=== PATIENT | male | born 1960 | race Caucasian/White ===

== ENCOUNTER 2017-01-01 03:07 | Emergency (ER) | payer BC ==
[2017-01-01] MEDS ORDERED: ASPIRIN 81 MG TABLET, CHEWABLE PO ONE (03:18)
[2017-01-01 03:38] LABS: ABSOLUTE BASOPHILS # (AUTO) 0.1 10^3/uL (0.0-0.2); ABSOLUTE EOSINOPHILS # (AUTO) 0.3 10^3/uL (0.0-0.6); ABSOLUTE LYMPHOCYTES (AUTO) 1.4 10^3/uL (0.5-4.7); ABSOLUTE MONOCYTES (AUTO) 0.7 10^3/uL (0.1-1.4); ABSOLUTE NEUT (AUTO) 4.4 10^3/uL (1.7-8.2); BASOPHILS % (AUTO) 0.8 % (0-2); EOSINOPHILS % (AUTO) 3.9 % (0-6); HEMATOCRIT 43.8 % (37.9-51.0); HEMOGLOBIN 14.6 g/dL (13.5-17.0); LYMPHOCYTES % (AUTO) 20.5 % (13-45); MEAN CORPUSCULAR HEMOGLOBIN 30.6 pg (27.0-33.4); MEAN CORPUSCULAR HGB CONC 33.4 g/dL (32.0-36.0); MEAN CORPUSCULAR VOLUME 92 fl (80-97); MONOCYTES % (AUTO) 9.9 % (3-13); RED BLOOD COUNT 4.78 10^6/uL (4.35-5.55); RED CELL DISTRIBUTION WIDTH 13.9 % (11.5-14.0); SEGMENTED NEUTROPHILS % (AUTO) 64.9 % (42-78); WHITE BLOOD COUNT 6.7 10^3/uL (4.0-10.5)
--- NOTE | 2017-01-01 03:45 | ER Document Report ---
ED General - General Chief Complaint: Chest Pain Stated Complaint: CHEST PAIN Time Seen by Provider: 01/01/17 03:21 Notes: Patient is a 56-year-old male who comes emergency department for chief complaint of chest pain and irritation up in his throat, symptoms awoke him from sleep tonight. He comes by ambulance, was given 324 mg of aspirin, 1 dose of sublingual iron, and a nitro glycerin patch. Patient states the pain was in the left chest and radiated towards his left arm. He states this is significantly better now but he still irritation in his throat like he needs to "throw up and get something out". Patient ate steak for dinner tonight. Denies knowledge of esophageal stricture, states something similar happened with food several years ago though. He does not smoke, he denies any cardiac medical history or family medical history of cardiac disease. He denies any daily medications, only past medical history is chronic lower back pain. - Related Data Allergies/Adverse Reactions: fentanyl Allergy (Verified 01/01/17 04:00) narcotics Allergy (Uncoded 01/01/17 04:00) Home Medications: Current Home Medications Ibuprofen/Famotidine [Duexis 800-26.6 mg Tablet] 1 tab PO TID 01/01/17 [History] Past Medical History - General Information source: Patient - Social History Smoking Status: Never Smoker Frequency of alcohol use: None Drug Abuse: None Lives with: Family Family History: Reviewed & Not Pertinent Musculoskeltal Medical History: Reports Hx Arthritis, Reports Hx Musculoskeletal Deformity, Reports Hx Musculoskeletal Trauma Surgical Hx: Negative - Immunizations Immunizations up to date: Yes Hx Diphtheria, Pertussis, Tetanus Vaccination: Yes Review of Systems - Review of Systems Constitutional: No symptoms reported EENT: No symptoms reported Cardiovascular: See HPI Respiratory: No symptoms reported Gastrointestinal: See HPI Genitourinary: No symptoms reported Male Genitourinary: No symptoms reported Musculoskeletal: No symptoms reported Skin: No symptoms reported Hematologic/Lymphatic: No symptoms reported Neurological/Psychological: No symptoms reported Physical Exam - Vital signs Vitals: Temp Pulse Ox 98.2 F 98 01/01/17 03:08 01/01/17 03:08 Interpretation: Normal - General General appearance: Anxious - patient appears uncomfortable on exam, clearing his throat and making coughing sounds - HEENT Head: Normocephalic, Atraumatic Eyes: Normal Conjunctiva: Normal Extraocular movements intact: Yes Eyelashes: Normal Pupils: PERRL Nasal: Normal Mouth/Lips: Normal Mucous membranes: Normal Pharynx: Normal Neck: Normal - Respiratory Respiratory status: No respiratory distress Chest status: Nontender Breath sounds: Normal Chest palpation: Normal - Cardiovascular Rhythm: Regular. No: Tachycardia Heart sounds: Normal auscultation, S1 appreciated, S2 appreciated Murmur: No - Abdominal Inspection: Normal Distension: No distension Bowel sounds: Normal Tenderness: Nontender. No: Tender, Guarding Organomegaly: No organomegaly - Back Back: Normal, Nontender - Extremities General upper extremity: Normal inspection, Nontender, Normal color, Normal ROM , Normal temperature General lower extremity: Normal inspection, Nontender, Normal color, Normal ROM , Normal temperature, Normal weight bearing. No: Elsie's sign - Neurological Neuro grossly intact: Yes Cognition: Normal Orientation: AAOx4 [place] Coma Scale Eye Opening: Spontaneous [place] Coma Scale Verbal: Oriented [place] Coma Scale Motor: Obeys Commands Jamil Coma Scale Total: 15 Speech: Normal Motor strength normal: LUE, RUE, LLE, RLE Sensory: Normal - Psychological Associated symptoms: Normal affect, Normal mood - Skin Skin Temperature: Warm Skin Moisture: Dry Skin Color: Normal Course - Re-evaluation Re-evalutation: EKG showing sinus rhythm, no T-wave inversions or ST segment changes in consecutive leads. Initial troponin negative. CBC and chemistry generally unremarkable. Patient stating he just feels like he needs to vomit and feel better, making cough sounds and clearing his throat. After GI cocktail symptoms completely resolved. Atypical pain and presentation with no concerning reported risk factors other than age. Heart score of 1. Low risk. Unremarkable chest x-ray. Troponin cycled and is negative. Patient's description and presentation actually suggests esophageal spasm after likely food bolus difficulty. On reexaminations patient reporting no symptoms, requesting to leave. Providing with Zantac, discussed return precautions with return symptoms, discussed follow-up, patient states satisfaction and agreement. - Vital Signs Vital signs: Temp Pulse Resp BP Pulse Ox 98.2 F 21 H 123/79 96 01/01/17 03:08 01/01/17 07:45 01/01/17 07:49 01/01/17 07:49 - Laboratory Result Diagrams: 01/01/17 03:23 01/01/17 03:23 Laboratory results interpreted by me: 01/01/17 03:23 Chloride 110 H Carbon Dioxide 21 L Glucose 119 H Discharge - Discharge Clinical Impression: Chest pain Qualifiers: Chest pain type: unspecified Qualified Code(s): R07.9 - Chest pain, unspecified Condition: Stable Disposition: HOME, SELF-CARE Additional Instructions: Your workup shows no concerning abnormalities. Your symptoms and response to treatment suggest a gastrointestinal source. Take the Zantac as prescribed (recommend take it daily for at least the next few days). Follow up closely with Primary Care for additional evaluation and treatment. Return to the ED for any returned or new concerning symptoms. Prescriptions: Ranitidine HCl [Zantac 150 mg Tablet] 150 mg PO BID #30 tablet
[2017-01-01 03:47] LABS: ALANINE AMINOTRANSFERASE 49 U/L (21-72); ALBUMIN 3.8 g/dL (3.5-5.0); ALKALINE PHOSPHATASE 66 U/L (38-126); ANION GAP 10 (5-19); ASPARTATE AMINO TRANSFERASE 27 U/L (17-59); BILIRUBIN,DIRECT 0.3 mg/dL (0.0-0.4); BILIRUBIN,TOTAL 0.4 mg/dL (0.2-1.3); BLOOD UREA NITROGEN 20 mg/dL (7-20); CALCIUM 8.7 mg/dL (8.4-10.2); CARBON DIOXIDE 21 mmol/L (22-30); CHLORIDE 110 mmol/L (98-107); CREATINE KINASE 59 U/L (55-170); CREATININE RESULT 0.74 mg/dL (0.52-1.25); GLUCOSE 119 mg/dL (75-110); SODIUM 141.4 mmol/L (137-145); TOTAL PROTEIN 6.7 g/dL (6.3-8.2)
[2017-01-01 04:03] LABS: CREATINE KINASE MB < 0.22 ng/mL (<4.55); TROPONIN I < 0.012 ng/mL
[2017-01-01] MEDS ORDERED: METOCLOPRAMIDE HCL ORAL SOLN 10 MG/10 ML UDCUP PO ONE (04:16)
[2017-01-01] MEDS ORDERED: MAG HYDROX/AL HYDROX/SIMETH SUSP 30 ML UDCUP PO ONE (04:16)
[2017-01-01] MEDS ORDERED: LIDOCAINE 2% VISCOUS SOLN 20 ML UDCUP PO ONE (04:16)
--- NOTE | 2017-01-01 04:35 | RADIOLOGY REPORT (SQ) ---
EXAM DESCRIPTION: CHEST SINGLE VIEW COMPLETED DATE/TIME: 01/01/2017 4:18 am REASON FOR STUDY: chest pain COMPARISON: 09/17/2009 EXAM PARAMETERS: NUMBER OF VIEWS: One view. TECHNIQUE: Single frontal radiographic view of the chest acquired. RADIATION DOSE: NA LIMITATIONS: None. FINDINGS: LUNGS AND PLEURA: No opacities, masses or pneumothorax. No pleural effusion. Moderate marquise g volumes. MEDIASTINUM AND HILAR STRUCTURES: No masses. Contour normal. HEART AND VASCULAR STRUCTURES: Heart normal in size. Normal vasculature. BONES: No acute findings. HARDWARE: None in the chest. OTHER: No other significant finding. IMPRESSION: NO ACUTE RADIOGRAPHIC FINDING IN THE CHEST. TECHNICAL DOCUMENTATION: JOB ID: [id number]
[2017-01-01 07:54] VITALS: BP 123/79
--- NOTE | 2017-01-01 08:28 | EKG REPORT ---
SEVERITY:- ABNORMAL ECG - SINUS RHYTHM PROBABLE LEFT VENTRICULAR HYPERTROPHY : Confirmed by: Sivakumar Torres MD 01-Jan-2017 08:27:49
== END 2017-01-01 07:55 | disposition home or self-care (01) ==
LOC: ER 03:07
DX: R07.9 Chest pain, unspecified (principal)
CPT/HCPCS: 93005; 99285; 36415; 82553; 82550; 85025; 80053; 84484; 71010; 93010; J3490

== ENCOUNTER → 2017-08-24 | Outpatient (CLI) | payer BC ==
[2017-08-24 09:42] LABS: ALANINE AMINOTRANSFERASE 40 U/L (21-72); ALBUMIN 4.4 g/dL (3.5-5.0); ALKALINE PHOSPHATASE 67 U/L (38-126); ANION GAP 11 (5-19); ASPARTATE AMINO TRANSFERASE 27 U/L (17-59); BILIRUBIN,DIRECT 0.4 mg/dL (0.0-0.4); BILIRUBIN,TOTAL 0.7 mg/dL (0.2-1.3); BLOOD UREA NITROGEN 16 mg/dL (7-20); CALCIUM 9.6 mg/dL (8.4-10.2); CARBON DIOXIDE 28 mmol/L (22-30); CHLORIDE 106 mmol/L (98-107); CHOLESTEROL 205.67 mg/dL (0-200); GAMMA-GLUTAMYL TRANSFERASE 43 U/L (8-78); GLUCOSE 100 mg/dL (75-110); POTASSIUM 4.9 mmol/L (3.6-5.0); SODIUM 145.3 mmol/L (137-145); TOTAL PROTEIN 7.6 g/dL (6.3-8.2); TRIGLYCERIDES 94 mg/dL (<150)
[2017-08-24 09:55] LABS: DIRECT LDL 154 mg/dL (<100)
[2017-08-24 09:57] LABS: FREE T4 (FREE THYROXINE) 1.09 ng/dL (0.78-2.19)
[2017-08-24 10:11] LABS: THYROID STIMULATING HORMONE 0.87 uIU/mL (0.47-4.68)
== END ==
LOC: OD 08:29
PROVIDERS: ATTEND Internal Medicine Cardiovascular Disease
DX: E78.00 Pure hypercholesterolemia, unspecified (principal); I10 Essential (primary) hypertension; E66.01 Morbid (severe) obesity due to excess calories; Z79.899 Other long term (current) drug therapy
CPT/HCPCS: 36415; 80048; 80061; 80076; 82977; 83036; 83735; 84439; 84443; 84481